=== PATIENT | female | born 1960 | race Caucasian/White ===

== ENCOUNTER 2016-08-05 16:11 | Outpatient (CLI) | payer OTHER ==
--- NOTE | 2016-08-05 17:36 | DIAGNOSTIC IMAGING REPORT ---
PROCEDURE: XR FINGER - RIGHT (second finger). INDICATION: RIGHT INDEX FINGER INJURY TECHNIQUE: Three views. COMPARISON: None. FINDINGS: There is a nondisplaced cortical avulsion fracture of the volar base, middle phalanx, right second finger. The rest of the osseous structures and joint spaces are normal IMPRESSION: 1. Nondisplaced avulsion fracture of the volar base, middle phalanx, right second finger
== END 2016-08-05 23:00 | disposition home or self-care (01) ==
LOC: XR SRH 16:11
DX: S62.651A Nondisplaced fracture of middle phalanx of left index finger, initial encounter for closed fracture (principal)

== ENCOUNTER 2016-08-23 13:48 | Outpatient (CLI) | payer OTHER ==
--- NOTE | 2016-08-23 15:12 | DIAGNOSTIC IMAGING REPORT ---
PROCEDURE: XR KNEE 3 VIEWS - RIGHT INDICATION: ACUTE PX OF RIGHT KNEE TECHNIQUE: Three views of the right knee. COMPARISON: None. FINDINGS: Normal mineralization. No fractures. Normal osseous alignment. No joint effusion. No suspicious soft-tissue calcification or radiodense foreign bodies. IMPRESSION: 1. Intact right knee.
== END 2016-08-23 23:00 ==
LOC: XR SRH 13:48
DX: M25.561 Pain in right knee (principal)